=== PATIENT | male | born 1975 | race Caucasian/White ===

== ENCOUNTER 2019-03-13 01:22 | Emergency (ER) | payer MEDICAID, OTHER ==
[~2019-03-13] VITALS: Ht 160 cm; Wt 87.9 kg
[~2019-03-13 01:22] MED LIST: CYCL15DR13 RIGHT EYE; ERYT1OIN6 RIGHT EYE; IBUP-1542 PO
[2019-03-13 01:26] VITALS: Ht 160 cm; Wt 87.9 kg
[2019-03-13] MEDS: FLUORESCEIN STRIP RIGHT EYE ONE (02:46)
[2019-03-13] MEDS ORDERED: TETRACAINE 0.5% 4 ML OPH RIGHT EYE ONE (03:00)
[2019-03-13 03:37] VITALS: BP 164/103; PULSE 60; RESP 16
== END 2019-03-13 03:41 | disposition home or self-care (01) ==
LOC: FTE 01:22
DX: S05.01XA Injury of conjunctiva and corneal abrasion without foreign body, right eye, initial encounter (principal); X58.XXXA Exposure to other specified factors, initial encounter; Y92.9 Unspecified place or not applicable
CPT/HCPCS: Z7502; Z7610; 99283